=== PATIENT | female | born 1990 | race African-American/Black ===

== ENCOUNTER 2021-08-29 09:45 | Emergency (ER) | payer SELFPAY ==
[~2021-08-29] VITALS: Ht 162.6 cm; Wt 72.6 kg
[2021-08-29 10:05] VITALS: BP 142/93
[2021-08-29] MEDS ORDERED: IBUP600T27 PO (11:04)
[2021-08-29] MEDS ORDERED: AZIT500T66 PO (11:04)
== END 2021-08-29 11:10 | disposition home or self-care (01) ==
LOC: ER 09:45
DX: J03.90 Acute tonsillitis, unspecified (principal); Z20.822 Contact with and (suspected) exposure to COVID-19
CPT/HCPCS: 36415; 87426